=== PATIENT | male | born 1965 ===

== ENCOUNTER 2019-03-17 19:48 | Emergency (ER) | payer OTHER ==
[2019-03-17 20:08] VITALS: BP 132/81
[2019-03-17] MEDS ORDERED: Ibuprofen TAB* 400 MG PO ONE (20:17)
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
[2019-03-17] MEDS ORDERED: Tetan/Diph/Pertus SYR(Tdap)* 0.5 ML SYR(BOOSTRIX) use SYR IM ONE (22:10)
[2019-03-17] MEDS ORDERED: Lidocaine 1% MPF ** 5 ML VIAL INJ ONE (22:13)
[2019-03-17] MEDS ORDERED: Cephalexin CAP* 500 MG PO ONE (22:39)
--- NOTE | 2019-03-18 08:41 | UC ---
- Progress Note Progress Note: wet read correct Course/Dx - Diagnoses Provider Diagnoses: Open fracture of distal phalanx of left little finger, Subungual hematoma of left little finger Discharge - Sign-Out/Discharge Documenting (check all that apply): Post-Discharge Follow Up All imaging exams completed and their final reports reviewed: Yes - Discharge Plan Condition: Stable Disposition: HOME Prescriptions: Cephalexin CAP* [Keflex CAP*] 500 mg PO QID #27 cap Ibuprofen TAB* [Motrin TAB* 800 MG] 800 mg PO Q6H PRN #30 tab PRN Reason: Pain Patient Education Materials: Laceration (ED), Finger Fracture (ED), Skin Adhesive Care (ED) Forms: *Work Release Referrals: Maximino Pastor MD [Medical Doctor] - 1 Day Wilfredo Gonzales MD [Primary Care Provider] - 2 Days Additional Instructions: 1-Please take Keflex PO as directed full course of antibiotic. first dose givne today at the clinic. Take yogurts w/ probiotics or Culturelle to protect your GI system 2- Take ibuprofen PO 800 mg PO after meals as directed to alleviate pain and swelling. keep you finger elevated to decrease swelling 2-Please apply ice, keep your finger immobilized with the splint. 3- Please f/u with Orthopedic DR Pastor in 1 days for further evaluation and treatment on your finger fracture . - Billing Disposition and Condition Condition: STABLE Disposition: Home
== END 2019-03-17 23:16 | disposition home or self-care (01) ==
LOC: UCEAST 19:48
DX: S62.667B Nondisplaced fracture of distal phalanx of left little finger, initial encounter for open fracture (principal); S60.152A Contusion of left little finger with damage to nail, initial encounter; W31.9XXA Contact with unspecified machinery, initial encounter; Y92.63 Factory as the place of occurrence of the external cause; Y99.0 Civilian activity done for income or pay; Z23 Encounter for immunization; E11.9 Type 2 diabetes mellitus without complications; I10 Essential (primary) hypertension; F32.9 Major depressive disorder, single episode, unspecified; F17.210 Nicotine dependence, cigarettes, uncomplicated
CPT/HCPCS: 11740; 12001; 73140; 90471; 90715; 99213; A9270-GY; G0463